=== PATIENT | female | born 1985 | race Caucasian/White ===

== ENCOUNTER 2018-11-30 04:05 | Inpatient (IN) | payer BC, SELFPAY ==
[2015-04-13 22:58] VITALS: BMI 30.2
[2018-11-30] MEDS: Lactated Ringers 1,000 ML 50 ML IV ×2 (04:45→06:00)
[2018-11-30 04:46] VITALS: BMI 29.6
--- NOTE | 2018-11-30 04:54 | NURSING ---
[id number]-states she did virtual visits and then after 36 weeks has gone into the office
[2018-11-30 05:14] LABS: Hematocrit 36.9 % (37-47); Mean Corp Hgb Conc 32.5 g/gl (32-36); Mean Corpuscular Hgb 28.2 pg (27.0-32.0); Mean Corpuscular Volume 86.6 fL (81-99); Mean Platelet Vol. 10.1 fl (6.2-12.0); Platelet Count 254 K/mm3 (150-450); RBC Distribution Width CV 14.3 % (11.6-14.6); RBC Distribution Width SD 44.4 fl (35.1-43.9); Red Blood Count 4.26 M/mm3 (4.2-5.4); White Blood Count 12.9 K/mm3 (4.4-11.0)
[2018-11-30 05:17] LABS: Scan Indicated on CBC? Y/N NO
--- NOTE | 2018-11-30 06:48 | PCM.HP.OB ---
- Problem List (1) Term Status: Acute (2) Active labor Status: Acute (3) Tobacco use Status: Acute (4) History of depression Status: Acute History Date of Admission: 11/30/18 Final JOEL: 12/03/18 Final JOEL Source: LMP Gestational age: 39 Weeks and 4 Days History of this : This is a 33 year-old, G 4, P 2, at 39 weeks gestational age. She presented overnight in active labor. Has been having regular contractions since midnight. No lof or vb. +FM. She notes a h/o fast labor and she was 3cm dilated in the office. Allergies cefaclor [From Ceclor] Adverse Reaction (Verified 11/30/18 05:22) Hives povidone-iodine [From Betadine] Adverse Reaction (Verified 11/30/18 05:22) Itching soap [From Betadine] Adverse Reaction (Verified 11/30/18 05:22) Itching Home Medications: Home Medications Prenatabs FA 1 tab PO DAILY 04/13/15 Albuterol IH (ProAir) [Proair Hfa (SP)Vent Pts] 1 - 2 puff INHALATION Q6H PRN PRN 11/30/18 Budesonide Inhaler 180 mcg [Pulmicort Inhaler 180 mcg] 1 puff INHALATION BID 11/30/18 Smoking Status: Current every day smoker Alcohol: None Number of Fetus(es): 1 Heart Tracin/min to mod alexsander/+accels/+occasional early and variable decels TOCO Analysis: Ctx's q 2 min History Past Pregnancies: Past Pregnancies Delivery Date Name GA/Weeks Outcome Route Weight Gender Labor Length Anesthesia Delivery Location Provider FOB 40 6 SAB 40 Current Labs: GBS neg, 1hr GTT elevated and 3 hr GTT normal, Rh positive, antibody screen neg, syphilis NR, RI, hep b neg, HIV NR, UDS neg, GC/CT neg Expected Delivery Method: Spontaneous Vaginal Review of Systems Gynecological: Reports: - - +Ctx's, no vb, no lof. +FM Physical Exam General: Alert, - - Uncomfortable with ctx's HEENT: Atraumatic Lungs: - - No increased resp effort Abdomen: Soft, Non Tender, Gravid Extremities:: No edema Neurological: Neuro grossly intact [employer]: Normal external genitalia Estimated gestational size: Appropriate for gestational size Presentation: Cephalic Cervix Dilation (cm): 5 Station: -1 Effacement (%): 90 Assessment/Plan All Active Problems Term (Acute) Active labor (Acute) Tobacco use (Acute) History of depression (Acute) This is a 33 year-old, G 4, P 2, at 39 weeks gestational age who presented in active labor. - Admit for routine intrapartum care - GBS negative - AROM performed for light meconium stained fluid - Pt does not want epidural
--- NOTE | 2018-11-30 07:40 | PCM.OB.VAG ---
- Problem List (1) Term Status: Acute (2) Active labor Status: Acute (3) Tobacco use Status: Acute (4) History of depression Status: Acute Vaginal Delivery Maternal Presentation: Active Labor Amniotic Membrane Rupture Type: Artificial Amniotic Fluid Description: Thick meconium Final JOEL: 12/03/18 Gestational age: 39 Weeks and 4 Days Date of Procedure: 11/30/18 Pre-Operative Diagnosis: Term gestation, active labor, multiparous patient, h/o fast labor Post-Operative Diagnosis: As above Surgery/ Procedure Performed: Spontaneous Vaginal Delivery Type of Anesthesia: None Description of Procedure: Patient progressed quickly after AROM. Pt was complete and pushing. With pushing the head was delivered in occiput posterior position, followed by anterior shoulder and posterior shoulder without force or delay. Viable female was delivered without difficulty and placed on mother's abdomen. Cord was clamped and cut after 60 sec delay. Apgars were 8 and 9. Cord gases and cord blood were obtained. Placenta was delivered with fundal massage. Placenta was intact and normal with a three-vessel cord. Bleeding was hemostatic. First-degree perineal laceration was noted to be hemostatic, and the patient desired for it to not be repaired. EBL was 300 cc. Presentation: ROP Placental Delivery Description: Expressed Cord Vessel Description: 3 Vessels Cord Gases drawn per routine: ABG, VBG Cord Entanglement: None Estimated Blood Loss: 300 Infant A gender: Female (1 minute): 8 (5 minute): 9 Episiotomy Description: None Laceration: 1st degree Medications given after delivery: IV Pitocin Complications: None
[2018-11-30] MEDS: Acetaminophen 325 MG Tablet PO (08:18)
[2018-11-30 12:50] VITALS: BP 98/48; PULSE 73; RESP 16; TEMP 36.3
--- NOTE | 2018-11-30 15:15 | CASEMGMT ---
See assessment for details. W spoke w/MOB in room, as she scored a 12 on the PHQ-9. ABEBA reports has been dealing w/anxiety and depression since the age of 15. She takes medication only when absolutely necessary. ABEBA sees a counselor once per week at [facility], and her counselor told her she can come in when needed, or can wait a couple of weeks. ABEBA reports she knows when she is feeling more down and knows what to do to help herself, such as changing up her routine. ABEBA states she is not afraid to ask for help. She states that during and after she notices no difference in her anxiety and depression, and how she reported on the PHQ-9 is how she feels on a daily basis, no better and no worse. She states she refuses to let the depression swallow her up and will continue to fight. She states she believes the mind can help to cure the depression and does not believe in taking medication. ABEBA states her knows too when she is in one of my moods and is supportive. 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 Her boss however is going to let her work more from home if she would like to do this. ABBEA reports multiple supportive family members on both side of the family, and while SW was there her mother, step dad, and children were visiting. They left and a few minutes later ABEBA's father and brother came in. When ASTER was leaving unit another visitor had arrived. SW gave MOB information and reviewed information on shaken baby, safe sleeping, depression. ABEBA already has a counselor she sees regularly and knows the emergency number to call if needed. MOB and baby likely to go home tomorrow. At this time there are no other social service concerns. SW let MOB know if she has any concerns to let RN know and SW can check in w/her Sunday. Otherwise, no further needs at this time. SERGIO Romero, FR[employer] R[employer]CHER
[2018-11-30 16:23] VITALS: BP 113/57; PULSE 71; RESP 16; TEMP 36.6
[2018-11-30 19:35] VITALS: BP 108/62; PULSE 84; RESP 16; TEMP 36.4; O2SAT 98
[2018-12-01] VITALS: BP 90/50; PULSE 85; RESP 14; TEMP 36.4; O2SAT 97
[2018-12-01 04:00] VITALS: BP 114/70; PULSE 76; RESP 14; TEMP 36.4; O2SAT 98
[2018-12-01 08:40] VITALS: BP 106/64; PULSE 76; RESP 14; TEMP 36.6
--- NOTE | 2018-12-01 11:01 | PCM.PN.OB ---
Patient Problems: Active and Suspected Problems Term (Acute) Active labor (Acute) Tobacco use (Acute) History of depression (Acute) Subjective: Patient is doing well and feels ready to go home. . Tolerating a regular diet without nausea or vomiting. Ambulating and voiding without difficulty. Denies fevers, CP, SOB, severe pain, leg pain. Lochia minimal. - Physical Exam General: Alert, No apparent distress HEENT: Atraumatic Lungs: - - No increased resp effort Abdomen: Soft, Non Tender, - - FF Extremities: No edema, No Calf Tenderness Skin: No rashes Neurological: Neuro grossly intact Psych/Mental Status: Normal Affect, Appropriate Vital Signs Temp Pulse Resp BP Pulse Ox 97.8 F 76 14 106/64 98 12/01/18 08:40 12/01/18 08:40 12/01/18 08:40 12/01/18 08:40 12/01/18 04:00 Oxygen Delivery Method Room Air Weight: 175 lb 7.807 oz Body Mass Index (BMI) 29.6 Medical Necessity - Tobacco Use Smoking Status: Current every day smoker Assessment/Plan All Active Problems Term (Acute) Active labor (Acute) Tobacco use (Acute) History of depression (Acute) day#1 - Doing well - - PPBC: Declines at this time and would like to discuss at 6 wk appointment - Dispo: D/c home
--- NOTE | 2018-12-01 11:13 | DCINST_ITS ---
Discharge Diet: No Restrictions Discharge Activity: Return to Normal Activity, May Shower May resume sexual activity in: 6 weeks Weight Bearing Status: Full weight bearing Lifting Restrictions: None Call your doctor if you observe: Fever of 101 or Higher, Inability to urinate, Inability to have a bowel movement, Using more than one pad per hour, Shortness of breath, Dizziness, Chest pain, Increased palpitations (irregular heartbeat), Calf discomfort, Uncontrolled pain Additional Instructions: If you experience any of the following, contact your healthcare provider. * Bleeding that soaks a pad every hour for 2 hours * Fever 100.4 or higher * Unrelieved incision or abdominal pain * Swelling, redness, discharge or bleeding from your incision or episiotomy site * Your incision begins to separate * Problems urinating (including inability to urinate or burning while urinating). * Visual changes * Severe headache * Flu-like symptoms * Pain or redness in one of both of your breasts * Pain, warmth, tenderness or swelling in your legs, especially the calf area * Frequent nausea and vomiting * Symptoms of depression or anxiety If you experience any of the following, call 911 or go to the nearest Emergency Room. * Chest pain * Problems breathing * Seizure activity * Partial or complete paralysis of a body part, slurred speech, weakness or drooping of the face, or a sudden inability to walk or hold your balance Allergies/Adverse Reactions: Allergies cefaclor [From Ceclor] Adverse Reaction (Verified 11/30/18 05:22) Hives povidone-iodine [From Betadine] Adverse Reaction (Verified 11/30/18 05:22) Itching soap [From Betadine] Adverse Reaction (Verified 11/30/18 05:22) Itching Medications to take at Discharge Prenatabs FA 1 tab PO DAILY 04/13/15 Albuterol IH (ProAir) [Proair Hfa (SP)Vent Pts] 1 - 2 puff INHALATION Q6H PRN PRN 11/30/18 Budesonide Inhaler 180 mcg [Pulmicort Inhaler 180 mcg] 1 puff INHALATION BID 11/30/18 When: 4-6 weeks for visit Primary Care Physician: Pasquale Segovia MD [Primary Care Provider] - Test Results: Test results from this visit will be discussed in further detail at your follow- up appointment, if applicable.
--- NOTE | 2018-12-05 15:00 | NURSING ---
On follow up phone call was having trouble with hemorrhoids getting worse. Instructed to call doctor office to get checked and she said she would. Baby is and that is going well. States Angelique yin and Mary Kay were wonderful.
== END 2018-12-01 11:40 | disposition home or self-care (01) | DRG 807 ==
PROVIDERS: Admitting Provider Obstetrics & Gynecology; Family Provider Family Medicine; PCP Family Medicine; Visit Provider Obstetrics & Gynecology
DX: O77.0 Labor and delivery complicated by meconium in amniotic fluid (principal); Z37.0 Single live birth; O99.334 Smoking (tobacco) complicating childbirth; O70.0 First degree perineal laceration during delivery; Z87.59 Personal history of other complications of pregnancy, childbirth and the puerperium; Z3A.39 39 weeks gestation of pregnancy
CPT/HCPCS: 59025; 59050; 85027; 86850; 86900; 99218; J7120; G0378